=== PATIENT | female | born 1970 | race Hispanic/Latino ===

== ENCOUNTER 2023-10-19 14:10 | Emergency (ER) | payer OTHER ==
[~2023-10-19] VITALS: Ht 157.5 cm; Wt 90.0 kg
[~2023-10-19 14:10] MED LIST: CLARITIN10 M1 PO; MONTELUKAST SOD10 MG PO; MOTRIN400 MG/TAB PO; SINGULAIR10 MG PO; ZPAK PO; [UNRECOGNIZED DRUG - OTHER] PO
[2023-10-19 14:28] VITALS: BP 181/99
[2023-10-19 14:30] VITALS: BP 148/80
[2023-10-19 14:45] VITALS: BP 165/115
[2023-10-19] MEDS ORDERED: predniSONE 20 MG/TAB PO ONE (14:55)
[2023-10-19] MEDS ORDERED: DEXTROMETHORPHAN-Guaifenesin 20-200 MG/10 ML UDC PO ONE (14:55)
[2023-10-19 15:00] VITALS: BP 149/97
[2023-10-19] MEDS ORDERED: AFRIN 12 HOUR0.051 NAB (15:21)
[2023-10-19] MEDS ORDERED: ADVIL LIQUI-GE200 MG PO (15:21)
[2023-10-19] MEDS ORDERED: OFLOXACIN0.3 % OU (15:21)
[2023-10-19 15:42] VITALS: BP 149/97
[2023-10-20] MEDS ORDERED: CLARITIN10 M2 PO (09:51)
== END 2023-10-19 15:31 | disposition home or self-care (01) ==
LOC: ED 14:10
DX: J06.9 Acute upper respiratory infection, unspecified (principal); J45.909 Unspecified asthma, uncomplicated